=== PATIENT | male | born 1940 | race Caucasian/White ===

== ENCOUNTER 2018-07-02 17:41 | Emergency (ER) | payer MEDICARE, OTHER ==
[2018-07-02] MEDS ORDERED: DIPHENHYDRAMINE HCL 50 MG CAPSULE PO ONE (17:54)
--- NOTE | 2018-07-02 17:55 | ER Document Report ---
ED Medical Screen (RME) - General Chief Complaint: Rash Stated Complaint: RASH Time Seen by Provider: 07/02/18 17:47 Primary Care Provider: FADIA CASTRO MD [Primary Care Provider] - Follow up as needed Mode of Arrival: Ambulatory Information source: Patient TRAVEL OUTSIDE OF THE [place] IN LAST 30 DAYS: No - HPI Patient complains to provider of: rash; elbow swelling Onset: Other - pt. with c/o rash an sores over body for the past several days. Also, c/o swelling of R elbow - Related Data Allergies/Adverse Reactions: No Known Allergies Allergy (Verified 12/30/14 18:58) Past Medical History - Past Medical History Cardiac Medical History: Reports: Hx Coronary Artery Disease, Hx Hypercholesterolemia, Hx Hypertension Pulmonary Medical History: Reports: Hx Bronchitis, Hx COPD, Hx Pneumonia Endocrine Medical History: Reports: Hx Diabetes Mellitus Type 2 Renal/ Medical History: Reports: Hx Renal Insufficiency GI Medical History: Reports: Hx Gastroesophageal Reflux Disease Musculoskeltal Medical History: Reports Hx Arthritis Psychiatric Medical History: Reports: Hx Anxiety, Hx Depression Past Surgical History: Reports: Hx Coronary Artery Bypass Graft - x3, Hx Open Heart Surgery - 3 bypass, Hx Orthopedic Surgery - Total Right hip replacement 2002 - Immunizations Hx Diphtheria, Pertussis, Tetanus Vaccination: No Physical Exam - Vital signs Vitals: Temp Pulse Resp BP Pulse Ox 98.0 F 73 20 149/51 H 99 07/02/18 17:46 07/02/18 17:46 07/02/18 17:46 07/02/18 17:46 07/02/18 17:46 Course - Vital Signs Vital signs: Temp Pulse Resp BP Pulse Ox 98.0 F 73 20 149/51 H 99 07/02/18 17:46 07/02/18 17:46 07/02/18 17:46 07/02/18 17:46 07/02/18 17:46 Doctor's Discharge - Discharge Referrals: FADIA CASTRO MD [Primary Care Provider] - Follow up as needed
--- NOTE | 2018-07-02 18:25 | RADIOLOGY REPORT (SQ) ---
EXAM DESCRIPTION: ELBOW RIGHT AP/LAT COMPLETED DATE/TIME: 07/02/2018 6:10 pm REASON FOR STUDY: swelling R elbow COMPARISON: None. EXAM PARAMETERS: NUMBER OF VIEWS: Two view. TECHNIQUE: AP and lateral radiographic images acquired of the right elbow. LIMITATIONS: None. FINDINGS: MINERALIZATION: Normal. BONES: No acute fracture or dislocation. No worrisome bone lesions. JOINTS: No effusion. SOFT TISSUES: Moderate olecranon soft tissue swelling. No radiopaque foreign body. OTHER: No other significant finding. IMPRESSION: NO FRACTURE.Moderate olecranon soft tissue swelling. No radiopaque foreign body. TECHNICAL DOCUMENTATION: JOB ID: [id number] 2010 [employer]- All Rights Reserved Reading location - IP/workstation name: [email or web address]
[2018-07-02 18:35] LABS: ABSOLUTE EOSINOPHILS # (AUTO) 0.3 10^3/uL (0.0-0.6); ABSOLUTE LYMPHOCYTES (AUTO) 1.1 10^3/uL (0.5-4.7); ABSOLUTE MONOCYTES (AUTO) 0.9 10^3/uL (0.1-1.4); ABSOLUTE NEUT (AUTO) 7.9 10^3/uL (1.7-8.2); BASOPHILS % (AUTO) 0.4 % (0-2); EOSINOPHILS % (AUTO) 3.1 % (0-6); LYMPHOCYTES % (AUTO) 10.7 % (13-45); MEAN CORPUSCULAR HEMOGLOBIN 31.7 pg (27.0-33.4); MEAN CORPUSCULAR HGB CONC 34.9 g/dL (32.0-36.0); MEAN CORPUSCULAR VOLUME 91 fl (80-97); MONOCYTES % (AUTO) 8.5 % (3-13); PLATELET COUNT 278 10^3/uL (150-450); RED CELL DISTRIBUTION WIDTH 14.2 % (11.5-14.0); SEGMENTED NEUTROPHILS % (AUTO) 77.3 % (42-78); TOTAL CELLS COUNTED % (AUTO) 100 %; WHITE BLOOD COUNT 10.2 10^3/uL (4.0-10.5)
[2018-07-02 18:52] LABS: ALANINE AMINOTRANSFERASE 28 U/L (21-72); ALBUMIN 4.1 g/dL (3.5-5.0); ALKALINE PHOSPHATASE 112 U/L (38-126); ANION GAP 9 (5-19); ASPARTATE AMINO TRANSFERASE 23 U/L (17-59); BILIRUBIN,DIRECT 0.1 mg/dL (0.0-0.4); BILIRUBIN,TOTAL 0.9 mg/dL (0.2-1.3); BLOOD UREA NITROGEN 18 mg/dL (7-20); CALCIUM 9.3 mg/dL (8.4-10.2); CARBON DIOXIDE 27 mmol/L (22-30); CHLORIDE 103 mmol/L (98-107); GLUCOSE 163 mg/dL (75-110); POTASSIUM 4.4 mmol/L (3.6-5.0); SODIUM 138.6 mmol/L (137-145); TOTAL PROTEIN 6.8 g/dL (6.3-8.2)
[2018-07-02] MEDS ORDERED: PREDNISONE 20 MG TABLET PO ONE (20:31)
[2018-07-02] MEDS ORDERED: VALACYCLOVIR HCL 500 MG TABLET PO ONE (20:32)
--- NOTE | 2018-07-02 20:38 | ER Document Report ---
ED General - General Chief Complaint: Rash Stated Complaint: RASH Time Seen by Provider: 07/02/18 17:47 Primary Care Provider: FADIA CASTRO MD [HONORARY] - Follow up in 3-5 days Mode of Arrival: Ambulatory Notes: Patient is a 77-year-old male with past medical history of hypertension, hyp erlipidemia, presents complaining of approximately 3-4 weeks of a rash over his right chest, right abdomen, left low back. He also complains of swelling over his right olecranon bursa. The rash is described as itching, irritating rash although he denies any significant pain to the area. States the area started as clear fluid-filled sacs that he picks at, then they rupture and scab over. He has not seen his primary care physician regarding today's concern although he has an appointment scheduled in 4 days. Denies fever or constitutional symptoms. Nothing seems to improve the rash although he has tried topical hydrocortisone cream. Nothing seems to worsen the rash. No history of similar symptoms in the past. TRAVEL OUTSIDE OF THE [place] IN LAST 30 DAYS: No - Related Data Allergies/Adverse Reactions: No Known Allergies Allergy (Verified 12/30/14 18:58) Past Medical History - General Information source: Patient - Social History Smoking Status: Former Smoker Chew tobacco use (# tins/day): No Frequency of alcohol use: None Drug Abuse: None Lives with: Family Family History: Reviewed & Not Pertinent Patient has suicidal ideation: No Patient has homicidal ideation: No - Past Medical History Cardiac Medical History: Reports: Hx Coronary Artery Disease, Hx Hypercholesterolemia, Hx Hypertension Pulmonary Medical History: Reports: Hx Bronchitis, Hx COPD, Hx Pneumonia Endocrine Medical History: Reports: Hx Diabetes Mellitus Type 2 Renal/ Medical History: Reports: Hx Renal Insufficiency. Denies: Hx Peritoneal Dialysis GI Medical History: Reports: Hx Gastroesophageal Reflux Disease Musculoskeletal Medical History: Reports Hx Arthritis Psychiatric Medical History: Reports: Hx Anxiety, Hx Depression Past Surgical History: Reports: Hx Coronary Artery Bypass Graft - x3, Hx Open Heart Surgery - 3 bypass, Hx Orthopedic Surgery - Total Right hip replacement 2002 - Immunizations Hx Diphtheria, Pertussis, Tetanus Vaccination: No Hx Pneumococcal Vaccination: 05/03/07 Review of Systems - Review of Systems Notes: Constitutional: Negative for fever. HENT: Negative for sore throat. Eyes: Negative for visual changes. Cardiovascular: Negative for chest pain. Respiratory: Negative for shortness of breath. Gastrointestinal: Negative for abdominal pain, vomiting or diarrhea. Genitourinary: Negative for dysuria. Musculoskeletal: Positive for swelling to the right olecranon bursa Skin: Positive for rash. Neurological: Negative for headaches, weakness or numbness. 10 point ROS negative except as marked above and in HPI. Physical Exam - Vital signs Vitals: Temp Pulse Resp BP Pulse Ox 98.0 F 73 20 149/51 H 99 07/02/18 17:46 07/02/18 17:46 07/02/18 17:46 07/02/18 17:46 07/02/18 17:46 Interpretation: Hypertensive Notes: PHYSICAL EXAMINATION: GENERAL: Well-appearing, well-nourished and in no acute distress. HEAD: Atraumatic, normocephalic. EYES: Pupils equal round and reactive to light, extraocular movements intact, sclera anicteric, conjunctiva are normal. ENT: nares patent, oropharynx clear without exudates. Moist mucous membranes. NECK: Normal range of motion, supple without lymphadenopathy LUNGS: Breath sounds clear to auscultation bilaterally and equal. No wheezes rales or rhonchi. HEART: Regular rate and rhythm without murmurs ABDOMEN: Soft, nontender, normoactive bowel sounds. No guarding, no rebound. No masses appreciated. EXTREMITIES: Normal range of motion, swelling over the right olecranon bursa without any erythema, warmth or pain on palpation, no pitting or edema. No cyanosis. NEUROLOGICAL: No focal neurological deficits. Moves all extremities spontaneously and on command. PSYCH: Normal mood, normal affect. SKIN: Warm, Dry, normal turgor, scattered areas of scabbed over, crusted lesions over the right chest wall, right abdomen and left low back. There is a single fluid-filled vesicle in the right central chest Course - Re-evaluation Re-evalutation: 07/02/18 20:36 Patient presents with approximately 3 weeks of a nonspecific skin rash over his right lower pectoral region over his right abdomen. He also has several s cattered spots over his left low back although whether or not these of the same types of rashes uncertain. Patient does have 1 vesicle that is present over the right mid chest and the other areas appear to be crusted over vesicles that have ruptured. Patient does report that these are often clear filled sacs to do rupture. The distribution is somewhat atypical for a zoster appearance given that it does not appear to fit a single dermatome. However likewise does not appear consistent with a staphylococcal infection, could alternatively be an atopic dermatitis. Patient reports duration of symptoms for at least several weeks and is always very well in appearance, labs reassuring with the exception of chronic kidney disease of which the patient has a known history. I do not believe this is a rash of any life-threatening etiology. I have emphasized the patient that I am not certain of the exact cause of the rash, I have empirically started him on valacyclovir and prednisone for treatment of most probable shingles versus atopic dermatitis. He has follow-up with his primary care doc tor in the next 4 days and have advised a dermatology referral if he is not improving at that time. The patient does also have findings consistent with an olecranon bursitis of the right elbow. I have advised him on symptomatic care. No evidence to suggest septic joint or gouty joint. At this time will discharge with return precautions and follow-up recommendations. Verbal discharge instructions given a the bedside and opportunity for questions given. Medication warnings reviewed. Patient is in agreement with this plan and has verbalized understanding of return precautions and the need for primary care follow-up in the next 24-72 hours. 07/02/18 20:38 - Vital Signs Vital signs: Temp Pulse Resp BP Pulse Ox 97.7 F 70 14 124/62 96 07/02/18 20:48 07/02/18 20:48 07/02/18 20:48 07/02/18 20:48 07/02/18 20:48 - Laboratory Result Diagrams: 07/02/18 18:28 07/02/18 18:28 Laboratory results interpreted by me: 07/02/18 07/02/18 18:28 18:28 RDW 14.2 H Lymphocytes % 10.7 L Creatinine 1.35 H Est GFR (Non-Af Amer) 51 L Glucose 163 H Discharge - Discharge Clinical Impression: Rash and nonspecific skin eruption Olecranon bursitis Qualifiers: Laterality: right Qualified Code(s): M70.21 - Olecranon bursitis, right elbow Condition: Good Disposition: HOME, SELF-CARE Additional Instructions: The exact cause of your rash is uncertain. Considerations include possible atypical presentation of shingles, arterial skin infection, or possibly an allergic skin reaction. You are being treated with valacyclovir which is an antiviral agent as well as prednisone which is a steroid. We did see a primary care doctor in 4 days your symptoms should hopefully be improving with these medications. You may also take Benadryl 25-50 mg every 6 hours as needed for itching. Your primary care doctor may wish to refer you to a airplane pilot crop dusting particular if your rash is not improving. Please return to the emergency d epartment immediately if you develop fever greater than 100.4 F, worsening of the rash, spreading redness around the areas, or have any other symptoms that are worrisome to you. Prescriptions: Valacyclovir HCl [Valacyclovir] 1,000 mg PO Q8HP PRN #21 tablet PRN Reason: Prednisone [Deltasone 20 mg Tablet] 2 tab PO DAILY 5 Days tablet Referrals: FADIA CASTRO MD [HONORARY] - Follow up in 3-5 days
[2018-07-02 21:00] VITALS: BP 124/62
== END 2018-07-02 21:01 | disposition home or self-care (01) ==
LOC: ER 17:41
DX: R21 Rash and other nonspecific skin eruption (principal); L29.8 Other pruritus; M70.21 Olecranon bursitis, right elbow; I10 Essential (primary) hypertension; I25.10 Atherosclerotic heart disease of native coronary artery without angina pectoris; E11.9 Type 2 diabetes mellitus without complications; J44.9 Chronic obstructive pulmonary disease, unspecified; Z95.5 Presence of coronary angioplasty implant and graft; Z87.891 Personal history of nicotine dependence
CPT/HCPCS: 99283; 36415; 85025; 80053; 73070; A9270 ×3; J7512

== ENCOUNTER 2018-07-22 11:29 | Emergency (ER) | payer MEDICARE, OTHER ==
[2018-07-22] MEDS ORDERED: ONDANSETRON HCL INJ/PF 4 MG/2 ML SDV IV ONE (11:46)
[2018-07-22] MEDS ORDERED: MORPHINE SULFATE 10 MG/ML INJ IV ONE (11:46)
--- NOTE | 2018-07-22 12:13 | RADIOLOGY REPORT (SQ) ---
EXAM DESCRIPTION: CHEST SINGLE VIEW COMPLETED DATE/TIME: 07/22/2018 12:08 pm REASON FOR STUDY: fall, pain COMPARISON: 01/03/2015 EXAM PARAMETERS: NUMBER OF VIEWS: One view. TECHNIQUE: Single frontal radiographic view of the chest acquired. RADIATION DOSE: NA LIMITATIONS: None. FINDINGS: LUNGS AND PLEURA: No consolidation or effusions. There is elevation of the right hemidiap hragm. MEDIASTINUM AND HILAR STRUCTURES: No masses. Contour normal. HEART AND VASCULAR STRUCTURES: Heart normal in size. Normal vasculature. BONES: No acute findings. HARDWARE: There are multiple fractured sternal sutures. This is stable from prior study. OTHER: No other significant finding. IMPRESSION: Elevated right hemidiaphragm. No acute findings in the chest. TECHNICAL DOCUMENTATION: JOB ID: [id number] [employer]- All Rights Reserved Reading location - IP/workstation name: [email or web address]
--- NOTE | 2018-07-22 12:14 | RADIOLOGY REPORT (SQ) ---
EXAM DESCRIPTION: KNEE RIGHT 2 VIEWS COMPLETED DATE/TIME: 07/22/2018 12:08 pm REASON FOR STUDY: fall, pain COMPARISON: None. NUMBER OF VIEWS: Two views. TECHNIQUE: AP and lateral radiographic images acquired of the right knee. LIMITATIONS: None. FINDINGS: MINERALIZATION: Normal. BONES: No acute fracture or dislocation. No worrisome bone lesions. JOINT: There is joint space narrowing in all compartments. SOFT TISSUES: There is vascular calcification. OTHER: No other significant finding. IMPRESSION: Degenerative changes with joint space narrowing in all compartments. No acute fracture or dislocation. TECHNICAL DOCUMENTATION: JOB ID: [id number] [employer]- All Rights Reserved Reading location - IP/workstation name: [email or web address]
--- NOTE | 2018-07-22 12:15 | RADIOLOGY REPORT (SQ) ---
EXAM DESCRIPTION: TIBIA FIBULA RIGHT COMPLETED DATE/TIME: 07/22/2018 12:08 pm REASON FOR STUDY: leg pain COMPARISON: None. NUMBER OF VIEWS: Two views. TECHNIQUE: Two radiographic images acquired of the right tibia and fibula to include the knee and an kle in at least one projection. LIMITATIONS: None. FINDINGS: MINERALIZATION: Normal. BONES: No acute fracture or dislocation. No worrisome bone lesions. SOFT TISSUES: No obvious swelling or foreign body. OTHER: No other significant finding. IMPRESSION: NEGATIVE STUDY OF THE RIGHT TIBIA AND FIBULA. NO RADIOGRAPHIC EVIDENCE OF ACUTE INJURY. TECHNICAL DOCUMENTATION: JOB ID: [id number] [employer]- All Rights Reserved Reading location - IP/workstation name: [email or web address]
--- NOTE | 2018-07-22 12:16 | RADIOLOGY REPORT (SQ) ---
EXAM DESCRIPTION: FOOT RIGHT 2 VIEWS COMPLETED DATE/TIME: 07/22/2018 12:08 pm REASON FOR STUDY: fall, pain COMPARISON: None. NUMBER OF VIEWS: Three views. TECHNIQUE: AP, lateral and oblique radiographic images acquired of the right foot. LIMITATIONS: None. FINDINGS: MINERALIZATION: Normal. BONES: There is a fracture at the base of the 5th metatarsal. JOINTS: No effusions. SOFT TISSUES: There is soft tissue edema. OTHER: No other significant finding. IMPRESSION: Fracture at the base of the 5th metatarsal. TECHNICAL DOCUMENTATION: JOB ID: [id number] [employer]- All Rights Reserved Reading location - IP/workstation name: [email or web address]
[2018-07-22 12:47] LABS: ABSOLUTE EOSINOPHILS # (AUTO) 0.4 10^3/uL (0.0-0.6); ABSOLUTE LYMPHOCYTES (AUTO) 0.8 10^3/uL (0.5-4.7); ABSOLUTE MONOCYTES (AUTO) 1.4 10^3/uL (0.1-1.4); ABSOLUTE NEUT (AUTO) 9.1 10^3/uL (1.7-8.2); BASOPHILS % (AUTO) 0.3 % (0-2); EOSINOPHILS % (AUTO) 3.1 % (0-6); HEMATOCRIT 37.1 % (37.9-51.0); HEMOGLOBIN 12.9 g/dL (13.5-17.0); LYMPHOCYTES % (AUTO) 6.9 % (13-45); MEAN CORPUSCULAR HEMOGLOBIN 32.1 pg (27.0-33.4); MEAN CORPUSCULAR HGB CONC 34.9 g/dL (32.0-36.0); MEAN CORPUSCULAR VOLUME 92 fl (80-97); MONOCYTES % (AUTO) 12.2 % (3-13); PLATELET COUNT 272 10^3/uL (150-450); RED BLOOD COUNT 4.03 10^6/uL (4.35-5.55); RED CELL DISTRIBUTION WIDTH 15.2 % (11.5-14.0); SEGMENTED NEUTROPHILS % (AUTO) 77.5 % (42-78); TOTAL CELLS COUNTED % (AUTO) 100 %; WHITE BLOOD COUNT 11.8 10^3/uL (4.0-10.5)
[2018-07-22 12:56] LABS: INTERNATIONAL RATION (INR) 1.06; PROTHROMBIN TIME 14.3 SEC (11.4-15.4)
[2018-07-22 12:57] LABS: PARTIAL THROMBOPLASTIN TIME 48.9 SEC (23.5-35.8)
[2018-07-22 13:10] LABS: ALANINE AMINOTRANSFERASE 30 U/L (21-72); ALBUMIN 3.5 g/dL (3.5-5.0); ALKALINE PHOSPHATASE 113 U/L (38-126); ANION GAP 8 (5-19); ASPARTATE AMINO TRANSFERASE 26 U/L (17-59); BILIRUBIN,DIRECT 0.3 mg/dL (0.0-0.4); BILIRUBIN,TOTAL 1.4 mg/dL (0.2-1.3); BLOOD UREA NITROGEN 22 mg/dL (7-20); CALCIUM 9.2 mg/dL (8.4-10.2); CARBON DIOXIDE 28 mmol/L (22-30); CHLORIDE 99 mmol/L (98-107); CREATINE KINASE 126 U/L (55-170); GLUCOSE 195 mg/dL (75-110); POTASSIUM 4.6 mmol/L (3.6-5.0); SODIUM 134.9 mmol/L (137-145); TOTAL PROTEIN 6.4 g/dL (6.3-8.2)
[2018-07-22 13:21] LABS: CREATINE KINASE MB 2.02 ng/mL (<4.55)
[2018-07-22 13:22] LABS: TROPONIN I < 0.012 ng/mL
[2018-07-22] MEDS ORDERED: NORMAL SALINE 500 ML IV ONE (13:48)
--- NOTE | 2018-07-22 14:33 | RADIOLOGY REPORT (SQ) ---
EXAM DESCRIPTION: CT HEAD WITHOUT COMPLETED DATE/TIME: 07/22/2018 2:28 pm REASON FOR STUDY: fall, head injury COMPARISON: None. TECHNIQUE: Axial images acquired through the brain without intravenous contrast. Images reviewed wi th bone, brain and subdural windows. Additional sagittal and coronal reconstructions were generated. Images stored on PACS. All CT scanners at this facility use dose modulation, iterative reconstruction, and/or weight based d osing when appropriate to reduce radiation dose to as low as reasonably achievable (ALARA). [facility]: Dose Right [facility]: CareDose [facility]: Dose Right [facility]: Teradose 4D [facility]: Smart PerspecSys RADIATION DOSE: CT Rad equipment meets quality standard of care and radiation dose reduction techniq ues were employed. CTDIvol: 53.2 mGy. DLP: 964 mGy-cm. mGy. LIMITATIONS: None. FINDINGS: VENTRICLES: Normal size and contour. CEREBRUM: No masses. No hemorrhage. No midline shift. No evidence for acute infarction. Normal gra y/white matter differentiation. No areas of low density in the white matter. CEREBELLUM: No masses. No hemorrhage. No alteration of density. No evidence for acute infarction. EXTRAAXIAL SPACES: No fluid collections. No masses. ORBITS AND GLOBE: No intra- or extraconal masses. Normal contour of globe without masses. CALVARIUM: No fracture. PARANASAL SINUSES: No fluid or mucosal thickening. SOFT TISSUES: No mass or hematoma. OTHER: No other significant finding. IMPRESSION: No acute intracranial pathology. EVIDENCE OF ACUTE STROKE: NO. COMMENT: Quality ID # [id number]: Final reports with documentation of one or more dose reduction techniques (e.g., Automated exposure control, adjustment of the mA and/or kV according to patient size, use of iterative reconstruction technique) TECHNICAL DOCUMENTATION: JOB ID: [id number] [employer]- All Rights Reserved Reading location - IP/workstation name: [email or web address]
[2018-07-22] MEDS ORDERED: CEFTRIAXONE 1 GM/D5W RTU 1 GM/50 ML RTUPB IV ONE (16:52)
[2018-07-22 17:04] LABS: APPEARANCE,URINE CLEAR; BILIRUBIN,URINE NEGATIVE (NEGATIVE); COLOR,URINE YELLOW; GLUCOSE, URINE 150 mg/dL (NEGATIVE); KETONES,URINE NEGATIVE (NEGATIVE); LEUKOCYTE ESTERASE,URINE NEGATIVE (NEGATIVE); NITRITE,URINE NEGATIVE (NEGATIVE); PROTEIN,URINE NEGATIVE (NEGATIVE); URINE SPECIFIC GRAVITY 1.013
--- NOTE | 2018-07-22 18:26 | ER Document Report ---
Entered by NOEMI BRASWELL SCRIBE 07/22/18 1206 Acting as scribe for:BRI LUKE DO ED Extremity Problem, Lower - General Stated Complaint: LEG INJURY Time Seen by Provider: 07/22/18 11:33 Primary Care Provider: [facility] [Primary Care Provider] - Follow up tomorrow Mode of Arrival: Ambulatory Information source: Patient Notes: 77-year-old male who presents to the emergency department today with complaints of right lower extremity pain and swelling. Patient had a fall x3 days ago. Patient was seen at [facility] initially for this fall and according to EMS was called and told he had a "fractured leg" today. Patient requested to come here instead of [facility]. History is limited. TRAVEL OUTSIDE OF THE [place] IN LAST 30 DAYS: No - Related Data Allergies/Adverse Reactions: No Known Allergies Allergy (Verified 12/30/14 18:58) Past Medical History - General Information source: Patient - Social History Smoking Status: Former Smoker Cigarette use (# per day): No Frequency of alcohol use: None Drug Abuse: None Lives with: Family Family History: Reviewed & Not Pertinent - Past Medical History Cardiac Medical History: Reports: Hx Coronary Artery Disease, Hx Hypercholesterolemia, Hx Hypertension Pulmonary Medical History: Reports: Hx Bronchitis, Hx COPD, Hx Pneumonia Endocrine Medical History: Reports: Hx Diabetes Mellitus Type 2 Renal/ Medical History: Reports: Hx Renal Insufficiency GI Medical History: Reports: Hx Gastroesophageal Reflux Disease Musculoskeletal Medical History: Reports Hx Arthritis Psychiatric Medical History: Reports: Hx Anxiety, Hx Depression Past Surgical History: Reports: Hx Coronary Artery Bypass Graft - x3, Hx Open Heart Surgery - 3 bypass, Hx Orthopedic Surgery - Total Right hip replacement 2002 - Immunizations Hx Diphtheria, Pertussis, Tetanus Vaccination: No Hx Pneumococcal Vaccination: 05/03/07 Review of Systems - Review of Systems Constitutional: No symptoms reported EENT: No symptoms reported Cardiovascular: No symptoms reported Respiratory: No symptoms reported Gastrointestinal: No symptoms reported Genitourinary: No symptoms reported Male Genitourinary: No symptoms reported Musculoskeletal: See HPI, Leg swelling, Other - right foot lower leg pain/swelling Skin: No symptoms reported Hematologic/Lymphatic: No symptoms reported Neurological/Psychological: No symptoms reported -: Yes All other systems reviewed and negative Physical Exam - Vital signs Interpretation: Normal - General General appearance: Appears well, Alert - HEENT Head: Normocephalic, Atraumatic Eyes: Normal Pupils: PERRL - Respiratory Respiratory status: No respiratory distress Chest status: Nontender Breath sounds: Normal Chest palpation: Normal - Cardiovascular Rhythm: Regular Heart sounds: Normal auscultation Murmur: No - Abdominal Inspection: Normal Distension: No distension Bowel sounds: Normal Tenderness: Nontender Organomegaly: No organomegaly - Back Back: Normal, Nontender - Extremities General upper extremity: Normal inspection, Nontender, Normal color, Normal ROM, Normal temperature General lower extremity: Normal color, Normal ROM, Normal temperature, Normal weight bearing. No: Harika's sign Shoulder: Normal Arm: Normal Elbow: Normal Forearm: Normal Wrist: Normal Hand: Normal Hip: Normal Thigh: Normal Knee: Normal Ankle: Normal, Nontender Foot: Tender - R foot over 5th MT - Neurological Neuro grossly intact: Yes Cognition: Normal Orientation: AAOx4 Drummond Coma Scale Eye Opening: Spontaneous Mil Coma Scale Verbal: Oriented Mil Coma Scale Motor: Obeys Commands Drummond Coma Scale Total: 15 Speech: Normal Motor strength normal: LUE, RUE, LLE, RLE Sensory: Normal - Psychological Associated symptoms: Normal affect, Normal mood - Skin Skin Temperature: Warm Skin Moisture: Dry Skin Color: Normal Notes: abrasion to R tibia Course - Re-evaluation Re-evalutation: 07/22/18 18:22 Patient is a 77-year-old male who had a fall a few days ago was told he had a fracture at [facility] and was sent in by EMS. Patient with no lab abnormalities except some mild dehydration. No evidence for urinary tract infection. No fractures except for fifth metatarsal of foot. Patient placed in short leg posterior splint. States he has a walker and wheelchair at home. He would like Tylenol with codeine for pain as needed. He will follow[place] Stable to for discharge. Return if any worsening or concerning symptoms. Patient is encouraged to take p.o. at home. - Laboratory Result Diagrams: 07/22/18 12:25 07/22/18 12:25 Laboratory results interpreted by me: 07/22/18 07/22/18 07/22/18 12:25 12:25 12:25 WBC 11.8 H RBC 4.03 L Hgb 12.9 L Hct 37.1 L RDW 15.2 H Lymphocytes % 6.9 L Absolute Neutrophils 9.1 H APTT 48.9 H Sodium 134.9 L BUN 22 H Creatinine 1.45 H Est GFR ( Amer) 57 L Est GFR (Non-Af Amer) 47 L Glucose 195 H Total Bilirubin 1.4 H Urine Glucose (UA) Urine Urobilinogen 07/22/18 16:50 WBC RBC Hgb Hct RDW Lymphocytes % Absolute Neutrophils APTT Sodium BUN Creatinine Est GFR ( Amer) Est GFR (Non-Af Amer) Glucose Total Bilirubin Urine Glucose (UA) 150 H Urine Urobilinogen 2.0 H - Diagnostic Test Radiology reviewed: Reports reviewed - EKG Interpretation by Me EKG shows normal: Sinus rhythm Discharge - Discharge Clinical Impression: Dehydration Fracture of 5th metatarsal Qualifiers: Encounter type: initial encounter Fracture type: closed Physeal involvement: unspecified Laterality: right Qualified Code(s): S92.351A - Displaced fracture of fifth metatarsal bone, right foot, initial encounter for closed fracture Condition: Stable Disposition: HOME, SELF-CARE Instructions: Dehydration ([facility]), Foot Fracture ([facility]) Additional Instructions: Your foot is broken. Your leg is not. You do not have a UTI. Prescriptions: Acetaminophen with Codeine [Tylenol #3 Tablet] 1 each PO Q6HP PRN #30 tablet PRN Reason: [facility]errals: [facility] [Primary Care Provider] - Follow up tomorrow Scribe Attestation: 07/22/18 18:26 I personally performed the services described in the documentation, reviewed and edited the documentation which was dictated to the scribe in my presence, and it accurately records my words and actions. I personally performed the services described in the documentation, reviewed and edited the documentation which was dictated to the scribe in my presence, and it accurately records my words and actions.
--- NOTE | 2018-07-22 23:03 | EKG REPORT ---
SEVERITY:- ABNORMAL ECG - SINUS RHYTHM VENTRICULAR PREMATURE COMPLEX INFERIOR INFARCT, AGE INDETERMINATE : Confirmed by: Dax Mcgee 22-Jul-2018 23:03:05
== END 2018-07-22 18:41 | disposition home or self-care (01) ==
LOC: ER 11:29
DX: S92.351A Displaced fracture of fifth metatarsal bone, right foot, initial encounter for closed fracture (principal); W10.8XXA Fall (on) (from) other stairs and steps, initial encounter; Y93.89 Activity, other specified; Y92.008 Other place in unspecified non-institutional (private) residence as the place of occurrence of the external cause; E86.0 Dehydration; I25.10 Atherosclerotic heart disease of native coronary artery without angina pectoris; I10 Essential (primary) hypertension; E11.9 Type 2 diabetes mellitus without complications; J44.9 Chronic obstructive pulmonary disease, unspecified; Z95.1 Presence of aortocoronary bypass graft; Z87.891 Personal history of nicotine dependence
CPT/HCPCS: 93005; 99284; 96361; 96375; 96365; 36415; 87086; 82553; 82550; 85025; 85610; 85730; 80053; 81001; 84484; 71045; 73620; 73560; 73590; 70450; 93010; 29515; J2270; J2405; J7040; J0696

== ENCOUNTER → 2018-08-18 | Outpatient (CLI) | payer MEDICARE, OTHER ==
--- NOTE | 2018-08-18 12:04 | RADIOLOGY REPORT (SQ) ---
EXAM DESCRIPTION: CT LT LOWER EXTREMITY WITHOUT COMPLETED DATE/TIME: 08/18/2018 10:21 am REASON FOR STUDY: PAIN IN LEFT HIP (M25.552) M25.552 PAIN IN LEFT HIP COMPARISON: None. TECHNIQUE: CT scan of the left hip performed without intravenous or oral contrast. Images reviewed with soft tissue and bone windows. Reconstructed coronal and sagittal MPR images reviewed. All imag es stored on PACS. All CT scanners at this facility use dose modulation, iterative reconstruction, and/or weight based d osing when appropriate to reduce radiation dose to as low as reasonably achievable (ALARA). [facility]: Dose Right [facility]: CareDose [facility]: Dose Right [facility]: Teradose 4D [facility]: [employer] RADIATION DOSE: CT Rad equipment meets quality standard of care and radiation dose reduction techniq ues were employed. CTDIvol: 25.1 mGy. DLP: 1006 mGy-cm. mGy. LIMITATIONS: Streak artifact from right hip replacement FINDINGS: There is abnormal enlargement and increased attenuation of the left distal iliopsoas muscl e near its attachment to the lesser trochanter. The muscle is diffusely enlarged, 9 by 4 x 5 cm in s ize. Muscle strain with intramuscular hematoma is a possibility. Hemorrhage into the iliopsoas burs a is also possible. The left hip joint itself demonstrates no gross effusion or trochanteric bursal fluid. Visualized left hemipelvis is intact No fracture of the left proximal femur. Degenerative changes at the L5-S1 level right greater than left, with moderate to high-grade right fo raminal narrowing and old right laminectomy with calcifications along the proximal right S1 nerve debbie t PELVIC SOFT TISSUES: No significant findings. EXTRAPELVIC SOFT TISSUES: No significant findings. OTHER: No other significant finding. IMPRESSION: Enlargement and increased density of the left iliopsoas muscle near its insertion on the lesser trochanter, left hip. This is worrisome for a muscle strain with intramuscular hematoma or h emorrhage into the iliopsoas bursa. No fracture visualized left hemipelvis. No fracture left hip TECHNICAL DOCUMENTATION: JOB ID: [id number] Quality ID # [id number]: Final reports with documentation of one or more dose reduction techniques (e.g., Au tomated exposure control, adjustment of the mA and/or kV according to patient size, use of iterative reconstruction technique) 2010 [employer]- All Rights Reserved Reading location - IP/workstation name: [email or web address]
== END ==
LOC: RAD 09:26
PROVIDERS: ATTEND Physician Assistant
DX: M25.552 Pain in left hip (principal); Z96.641 Presence of right artificial hip joint

== ENCOUNTER 2019-08-10 22:43 | Emergency (ER) | payer MEDICARE, OTHER ==
[2019-08-11] MEDS ORDERED: LIDOCAINE 2% VISCOUS SOLN 15 ML UDCUP PO ONE (01:14)
--- NOTE | 2019-08-11 01:16 | ER Document Report ---
HPI - HPI Time Seen by Provider: 08/11/19 01:06 Pain Level: 5 Context: Patient is a 78-year-old male that comes to the emergency department for chief complaint of pain with swallowing. He states that started earlier today. He states he thinks he "bruised or scratched the back of my throat". He states it hurts when he swallows. He denies inability to swallow, cough, fever, headache, vomiting, chest pain, congestion, or any other complaints. He states he did eat crackers and he wonders if he injured his throat. He is not on a blood thinner. Past medical history includes COPD, CAD, type 2 diabetes. He came by EMS. - EENT EENT: REPORTS: Sore Throat. DENIES: Ear Pain, Eye problems - NEURO Neurology: DENIES: Headache, Weakness, Vision blurred, Dizzinesss / Vertigo - CARDIOVASCULAR Cardiovascular: DENIES: Chest pain - RESPIRATORY Respiratory: DENIES: Trouble Breathing, Coughing - GASTROINTESTINAL Gastrointestinal: DENIES: Abdominal Pain, Black / Bloody Stools - URINARY Urinary: DENIES: Dysuria, Urgency, Frequency - REPRODUCTIVE Reproductive: DENIES: :, Postmenopausal, Abnormal bleeding / discharge - MUSCULOSKELETAL Musculoskeletal: DENIES: Extremity pain Past Medical History - General Information source: Patient - Social History Smoking Status: Former Smoker Frequency of alcohol use: None Drug Abuse: None Lives with: Family Family History: Reviewed & Not Pertinent Patient has suicidal ideation: No Patient has homicidal ideation: No - Past Medical History Cardiac Medical History: Reports: Hx Coronary Artery Disease, Hx Hypercholesterolemia, Hx Hypertension Pulmonary Medical History: Reports: Hx Bronchitis, Hx COPD, Hx Pneumonia Endocrine Medical History: Reports: Hx Diabetes Mellitus Type 2 Renal/ Medical History: Reports: Hx Renal Insufficiency. Denies: Hx Peritoneal Dialysis GI Medical History: Reports: Hx Gastroesophageal Reflux Disease Musculoskeletal Medical History: Reports Hx Arthritis Psychiatric Medical History: Reports: Hx Anxiety, Hx Depression Past Surgical History: Reports: Hx Coronary Artery Bypass Graft - x3, Hx Open Heart Surgery - 3 bypass, Hx Orthopedic Surgery - Total Right hip replacement 2002 - Immunizations Hx Diphtheria, Pertussis, Tetanus Vaccination: Yes Hx Pneumococcal Vaccination: 05/03/07 Vertical Provider Document - CONSTITUTIONAL General Appearance: WD/WN, No Apparent Distress - INFECTION CONTROL TRAVEL OUTSIDE OF THE [place] IN LAST 30 DAYS: No - HEENT HEENT: Atraumatic, Normocephalic. negative: Normal ENT Exam - Patient actually has a small wound just above the uvula and the posterior pharynx. This appears to be closing, there is no current bleeding, this is about 0.5 cm in length. This is not gaping. Remaining oral pharyngeal exam unremarkable - NECK Neck: Normal Inspection. negative: Lymphadenopathy-Left, Lymphadenopathy-Right - RESPIRATORY Respiratory: Breath Sounds Normal, No Respiratory Distress - CARDIOVASCULAR Cardiovascular: Regular Rate, Regular Rhythm - GI/ABDOMEN Gastrointestinal: Abdomen Soft, Abdomen Non-Tender. negative: Abdomen Tender - BACK Back: Normal Inspection - MUSCULOSKELETAL/EXTREMETIES Musculoskeletal/Extremeties: MAEW, FROM, Non-Tender - NEURO Level of Consciousness: Awake, Alert, Appropriate Motor/Sensory: No Motor Deficit, No Sensory Deficit - DERM Integumentary: Warm, Dry, No Rash Course - Re-evaluation Re-evalutation: Patient has painful swallowing but he is able to swallow without any difficulty, he demonstrated this for me with water, he has no choking, he has no neurological deficits, I do not suspect this is a CVA. Patient has an obvious wound to the pharynx on exam, reportedly this was from food, probably his crackers. This is not something that needs to be repaired, this is already healing, it is not currently bleeding, but it does cause pain when patient swallows. I did provide him with lidocaine, this helped some but patient declined this for home. Patient will be covered with antibiotics so this does not become infected, strep test is negative. Discussed expectations, recommendations, follow-up, return precautions. Patient states appreciation and agreement. - Vital Signs Vital signs: Temp Pulse Resp BP Pulse Ox 98.3 F 85 14 117/95 H 100 08/10/19 22:55 08/10/19 22:55 08/10/19 22:55 08/10/19 22:55 08/10/19 22:55 Discharge - Discharge Clinical Impression: Dysphagia Qualifiers: Dysphagia type: oral phase Qualified Code(s): R13.11 - Dysphagia, oral phase Open wound of oral cavity Qualifiers: Encounter type: initial encounter Open wound type: puncture wound Foreign body presence: without foreign body Qualified Code(s): S01.532A - Puncture wound without foreign body of oral cavity, initial encounter Condition: Stable Disposition: HOME, SELF-CARE Additional Instructions: Your strep test is negative. There is a small wound in the back of your mouth near the pharynx (throat). This appears to be from food. Take the antibiotic as prescribed to avoid this becoming infected, make sure you eat soft foods and avoid extremes in temperature for your food and drink. This should simply heal with time. Take Tylenol if needed for pain. Follow-up with primary care for additional management. Return if you worsen including severe worsening pain, fever, inability to swallow, or any other concerning symptoms. Prescriptions: Amoxicillin 1 tab PO BID 7 Days #14 tab Referrals: LIZABETH OLIVEROS JR, MD [Primary Care Provider] - Follow up in 3-5 days
[2019-08-11 02:38] VITALS: BP 140/65
== END 2019-08-11 02:40 | disposition home or self-care (01) ==
LOC: ER 22:43
DX: S01.532A Puncture wound without foreign body of oral cavity, initial encounter (principal); R13.11 Dysphagia, oral phase; J02.9 Acute pharyngitis, unspecified; X58.XXXA Exposure to other specified factors, initial encounter; Z87.891 Personal history of nicotine dependence; I25.10 Atherosclerotic heart disease of native coronary artery without angina pectoris; I10 Essential (primary) hypertension; J44.9 Chronic obstructive pulmonary disease, unspecified; E11.9 Type 2 diabetes mellitus without complications
CPT/HCPCS: 99284; 87070; 87880; J3490

== ENCOUNTER 2019-12-26 09:57 | Emergency (ER) | payer MEDICARE, OTHER ==
--- NOTE | 2019-12-26 10:32 | ER Document Report ---
ED Medical Screen (RME) - General Chief Complaint: Skin Sore(s) Stated Complaint: RASH Primary Care Provider: LIZABETH OLIVEROS JR, MD [Primary Care Provider] - Follow up as needed Mode of Arrival: Medic Information source: Patient Notes: 79-year-old male presented to ED for draining wounds. He states his well care nurse came to the house today and all his wounds were great draining green. She called the doctor and he told her to send him to the hospital to be evaluated and may be treated with IV antibiotics. We will get blood work and have wounds assessed by . he will be examining him. He is alert oriented respirations regular nonlabored speaking in full sentences. He states he has multiple wounds to his groin his legs and his abdomen. He does have a history of COPD bypass open heart surgery surgery x2 to the right hip diabetes type 2 cholesterol high blood pressure and reflux. He is a former smoker does not drink or use any illicit drugs. He is alert and oriented at this time he is able to answer questions appropriately. I have greeted and performed a rapid initial assessment of this patient. A comprehensive ED assessment and evaluation of the patient, analysis of test results and completion of medical decision making process will be conducted by an additional ED providers. TRAVEL OUTSIDE OF THE [place] IN LAST 30 DAYS: No - Related Data Allergies/Adverse Reactions: No Known Allergies Allergy (Verified 12/26/19 10:23) Past Medical History - Past Medical History Cardiac Medical History: Reports: Hx Coronary Artery Disease, Hx Hypercholesterolemia, Hx Hypertension Pulmonary Medical History: Reports: Hx Bronchitis, Hx COPD, Hx Pneumonia Endocrine Medical History: Reports: Hx Diabetes Mellitus Type 2 Renal/ Medical History: Reports: Hx Renal Insufficiency. Denies: Hx Peritoneal Dialysis GI Medical History: Reports: Hx Gastroesophageal Reflux Disease Musculoskeltal Medical History: Reports Hx Arthritis Psychiatric Medical History: Reports: Hx Anxiety, Hx Depression Past Surgical History: Reports: Hx Coronary Artery Bypass Graft - x3, Hx Open Heart Surgery - 3 bypass, Hx Orthopedic Surgery - Total Right hip replacement 2002 - Immunizations Hx Diphtheria, Pertussis, Tetanus Vaccination: Yes Physical Exam - Vital signs Vitals: Temp Pulse Resp BP Pulse Ox 98.4 F 99 20 131/45 H 100 12/26/19 10:02 12/26/19 10:02 12/26/19 10:02 12/26/19 10:12/26/19 10:02 Course - Vital Signs Vital signs: Temp Pulse Resp BP Pulse Ox 98.4 F 99 20 131/45 H 100 12/26/19 10:02 12/26/19 10:02 12/26/19 10:02 12/26/19 10:02 12/26/19 10:02 Doctor's Discharge - Discharge Referrals: LIZABETH OLIVEROS JR, MD [Primary Care Provider] - Follow up as needed
[2019-12-26 11:09] LABS: ABSOLUTE EOSINOPHILS # (AUTO) 0.4 10^3/uL (0.0-0.6); ABSOLUTE LYMPHOCYTES (AUTO) 0.9 10^3/uL (0.5-4.7); ABSOLUTE MONOCYTES (AUTO) 1.4 10^3/uL (0.1-1.4); ABSOLUTE NEUT (AUTO) 11.5 10^3/uL (1.7-8.2); BASOPHILS % (AUTO) 0.3 % (0-2); HEMATOCRIT 36.3 % (37.9-51.0); HEMOGLOBIN 12.3 g/dL (13.5-17.0); LYMPHOCYTES % (AUTO) 6.3 % (13-45); MEAN CORPUSCULAR HGB CONC 33.9 g/dL (32.0-36.0); MEAN CORPUSCULAR VOLUME 97 fl (80-97); MONOCYTES % (AUTO) 9.6 % (3-13); PLATELET COUNT 565 10^3/uL (150-450); RED BLOOD COUNT 3.74 10^6/uL (4.35-5.55); RED CELL DISTRIBUTION WIDTH 13.2 % (11.5-14.0); SEGMENTED NEUTROPHILS % (AUTO) 80.8 % (42-78); TOTAL CELLS COUNTED % (AUTO) 100 %; WHITE BLOOD COUNT 14.2 10^3/uL (4.0-10.5)
[2019-12-26 11:31] LABS: ALBUMIN 2.7 g/dL (3.5-5.0); ALKALINE PHOSPHATASE 117 U/L (38-126); ANION GAP 9 (5-19); ASPARTATE AMINO TRANSFERASE 20 U/L (17-59); BILIRUBIN,DIRECT 0.4 mg/dL (0.0-0.4); BILIRUBIN,TOTAL 0.4 mg/dL (0.2-1.3); BLOOD UREA NITROGEN 62 mg/dL (7-20); CALCIUM 9.3 mg/dL (8.4-10.2); CARBON DIOXIDE 16 mmol/L (22-30); CHLORIDE 112 mmol/L (98-107); GLUCOSE 210 mg/dL (75-110); POTASSIUM 4.8 mmol/L (3.6-5.0); TOTAL PROTEIN 5.9 g/dL (6.3-8.2)
[2019-12-26] MEDS ORDERED: VANCOMYCIN HCL INJ 1000 MG VIAL IV ONE (11:31)
--- NOTE | 2019-12-26 11:32 | ER Document Report ---
ED General - General Chief Complaint: Skin Sore(s) Stated Complaint: RASH Time Seen by Provider: 12/26/19 11:19 Primary Care Provider: LIZABETH OLIVEROS JR, MD [NO LOCAL MD] - Follow up as needed Mode of Arrival: Medic Notes: Patient presents with painful sores all over his body mostly on the legs and abdomen. Is been going on for several months and has been seen by dermatology with an unknown diagnosis and is currently using only clobetasol topical. Lives at home with minimal health and has been out of care secondary to poor access. Has had intermittent fevers and chills lately and fatigue, found to have an elevated white count at triage with innumerable desquamating lesions. TRAVEL OUTSIDE OF THE [place] IN LAST 30 DAYS: No - Related Data Allergies/Adverse Reactions: No Known Allergies Allergy (Verified 12/26/19 10:23) Home Medications: copd. bypass. hip surgery to right hip. atb. lisinopril. flomax. toprol. prozac. xanax. pantoprazole. januvia. vitamin. asa. avastastatin Past Medical History - General Information source: Patient - Social History Smoking Status: Former Smoker Chew tobacco use (# tins/day): No Frequency of alcohol use: None Drug Abuse: None Family History: Reviewed & Not Pertinent Patient has homicidal ideation: No - Past Medical History Cardiac Medical History: Reports: Hx Coronary Artery Disease, Hx Hypercholesterolemia, Hx Hypertension Pulmonary Medical History: Reports: Hx Bronchitis, Hx COPD, Hx Pneumonia Endocrine Medical History: Reports: Hx Diabetes Mellitus Type 2 Renal/ Medical History: Reports: Hx Renal Insufficiency. Denies: Hx Peritoneal Dialysis GI Medical History: Reports: Hx Gastroesophageal Reflux Disease Musculoskeletal Medical History: Reports Hx Arthritis Psychiatric Medical History: Reports: Hx Anxiety, Hx Depression Past Surgical History: Reports: Hx Coronary Artery Bypass Graft - x3, Hx Open Heart Surgery - 3 bypass, Hx Orthopedic Surgery - Total Right hip replacement 2002 - Immunizations Hx Diphtheria, Pertussis, Tetanus Vaccination: Yes Hx Pneumococcal Vaccination: 05/03/07 Review of Systems - Review of Systems Notes: REVIEW OF SYSTEMS GEN: Fever chills fatigue ENT: Denies sore throat, nasal discharge, ear pain EYES: Denies blurry vision, eye pain, discharge CV: Denies chest pain, palpitations, edema RESP: Denies cough, shortness of breath, wheezing GI: Denies abdominal pain, nausea, vomiting, diarrhea MSK: Denies joint pain/swelling, edema, SKIN: Lesions and pain LYMPH: Denies swollen glands/lymph nodes NEURO: Denies headache, focal weakness or numbness, dizziness PSYCH: Denies depression, suicidal or homicidal ideation PHYSICAL EXAMINATION General: Elderly poor health d Head: Atraumatic, normocephalic ENT: Mouth normal, oropharynx moist, no exudates or tonsillar enlargement Eyes: Conjunctiva normal, pupils equal, lids normal Neck: No JVD, supple, no guarding CVS: Normal rate, regular rhythm, no murmurs Resp: No resp distress, equal and normal breath sounds bilaterally GI: Nondistended, soft, no tenderness to palpation, no rebound or guarding Ext: No deformities, no edema, normal range of motion in upper and lower ext Back: No CVA or midline TTP Skin: ...................... Lymphatic: No lymphadeopathy noted Neuro: Awake, alert. Face symmetric. GCS 15. 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 Septic by heart rate infection and white count but overall looks chronically ill rather than acute. Will start antibiotics to cover MRSA, check labs. Patient was discussed with Dr. Filiberto Palomares the burn tending at [facility] who will consult and recommended hospitalist admission. Subsequently discussed with hospitalist and accepted in transfer. - Vital Signs Vital signs: Temp Pulse Resp BP Pulse Ox 98.4 F 99 15 119/53 L 100 12/26/19 10:24 12/26/19 10:02 12/26/19 13:01 12/26/19 13:00 12/26/19 13:01 - Laboratory Result Diagrams: 12/26/19 10:40 12/26/19 10:40 Laboratory results interpreted by me: 12/26/19 12/26/19 10:40 10:40 WBC 14.2 H RBC 3.74 L Hgb 12.3 L Hct 36.3 L Plt Count 565 H Lymph % (Auto) 6.3 L Absolute Neuts (auto) 11.5 H Seg Neutrophils % 80.8 H ESR 95 H Sodium 136.9 L Chloride 112 H Carbon Dioxide 16 L BUN 62 H Creatinine 1.52 H Est GFR ( Amer) 54 L Est GFR (MDRD) Non-Af 44 L Glucose 210 H Total Protein 5.9 L Albumin 2.7 L Critical Care Note - Critical Care Note Total time excluding time spent on procedures (mins): 31 Comments: The above patient is critically ill. Not including procedures, but including direct re-evaluations, speaking with patient and/or consultants, interpreting results, and documenting, I spent the total amount of minute listed listed above on critical care time Discharge - Discharge Clinical Impression: Skin lesions Condition: Good Disposition: [facility] Referrals: LIZABETH OLIVEROS JR, MD [NO LOCAL MD] - Follow up as needed
[2019-12-26 11:50] LABS: ERYTHROCYTE SEDIMENTATION RATE 95 mm/hr (0-20)
[2019-12-26] MEDS ORDERED: OXYCODONE-ACETAMINOPHEN 5-325 MG TABLET PO ONE (12:05)
[2019-12-26] MEDS ORDERED: CEFEPIME 1 GM/D5W RTU 1 GM/50 ML RTUPB IV SCH ×2 (15:00→22:00)
[2019-12-26] MEDS: RINGERS SOLUTION,LACTATED 1,000 ML IV PRN ×2 (15:02→16:04)
[2019-12-26] MEDS ORDERED: ALPRAZOLAM 0.5 MG TABLET PO ONE (16:59)
[2019-12-26] MEDS ORDERED: RINGERS SOLUTION,LACTATED 1,000 ML IV ONE (18:28)
[2019-12-26 19:28] VITALS: BP 81/47
[2019-12-26] MEDS ORDERED: VANCOMYCIN HCL INJ 1000 MG VIAL IV SCH (22:00)
== END 2019-12-26 19:50 | disposition short-term general hospital (02) ==
LOC: ER 09:57
DX: L98.9 Disorder of the skin and subcutaneous tissue, unspecified (principal); R21 Rash and other nonspecific skin eruption; R50.9 Fever, unspecified; R53.83 Other fatigue; I10 Essential (primary) hypertension; Z79.899 Other long term (current) drug therapy; J44.9 Chronic obstructive pulmonary disease, unspecified; Z87.891 Personal history of nicotine dependence; I25.10 Atherosclerotic heart disease of native coronary artery without angina pectoris; E11.9 Type 2 diabetes mellitus without complications
CPT/HCPCS: 99285; 96361; 96375; 96365; 36415; 87040; 83605; 85025; 85652; 80053; A9270 ×2; J7120; J3370; J0692